=== PATIENT | female | born 1960 | race Caucasian/White ===

== ENCOUNTER 2016-12-27 20:36 | Emergency (ER) | payer OTHER ==
[2016-12-27 21:01] VITALS: BP 124/57
[2016-12-27] MEDS ORDERED: Lidocaine 1% MPF* 2 ML VIAL INJ ONE ×3 (21:06→21:07)
--- NOTE | 2016-12-27 21:26 | UC ---
Skin Complaint HPI - HPI Summary HPI Summary: Patient present with complaints of right middle toe, she think she has an ingrown toenail. She states the symptoms began quickly yesterday, she states at first she thought she got stung by a bee, and then later the end of her toe began to swell up and she developed a blood blister. She complains of pain at the end of toe and tried to relieve some of the pressure by popping it with a needle. She reports a maroonish blister on the medial edge, and white discoloration at the tip and lateral edge. - History of Current Complaint Chief Complaint: UCLowerExtremity Time Seen by Provider: 12/27/16 20:58 Stated Complaint: INGROWN TOENAIL Hx Obtained From: Patient ?: No Onset/Duration: Sudden Onset Skin Exposure Onset/Duration: Days Ago Timing: Constant Onset Severity: Moderate Current Severity: Severe Location: Discrete, Foot (Right) - middle toe Character: Swelling, Redness, Painful Aggravating: Touch Alleviating: Nothing Associated Signs & Symptoms: Positive: Negative Similar Episode/Dx as: ingrown toenail - Allergy/Home Medications Allergies/Adverse Reactions: Allergies Allergy/AdvReac Type Severity Reaction Status Date / Time No Known Allergies Allergy Verified 08/16/16 20:59 Home Medications: Home Medications Nutritional Supplements [Estroven Pm] 1 tab PO DAILY 12/27/16 [History Confirmed 12/27/16] Review of Systems Skin: Other - right middle toe swollen, red, painful All Other Systems Reviewed And Are Negative: Yes PMH/Surg Hx/FS Hx/Imm Hx Previously Healthy: Yes Other History Of: Anticoagulant Therapy - 81 mg a day. Negative For: HIV, Hepatitis B, Hepatitis C - Surgical History Surgical History: Yes Surgery Procedure, Year, and Place: HYSTERECTOMY;. C SECTIONS - 2;. LAPROSCOPY D& C; - Family History Known Family History: Positive: Cardiac Disease, Hypertension - Social History Occupation: Employed Part-time Lives: Alone Alcohol Use: Occasionally Substance Use Type: None Smoking Status (MU): Former Smoker Physical Exam Triage Information Reviewed: Yes Appearance: Pain Distress Vital Signs: Initial Vital Signs Temp 97.3 F 12/27/16 20:48 Pulse 81 12/27/16 20:48 Resp 18 12/27/16 20:48 BP 124/57 12/27/16 20:48 Pulse Ox 100 12/27/16 20:48 Vital Signs Reviewed: Yes Eye Exam: Normal ENT Exam: Normal Neck exam: Normal Respiratory Exam: Normal Cardiovascular Exam: Normal Abdominal Exam: Normal Psychological: Positive: Decreased Age Appropriate Behavior Skin Exam: Other - right middle toe, medial edge maroon and edematous, distal and medial edge white with flucuance. Course/Dx - Course Course Of Treatment: Patient presented with cellulitis surronding the right middle toe, with consent a digital block was performed, and the area was infiltrated with a 18 gauze needle with small amount of purelent drainage, and culture was obtained,and is pending.The patient was given keflex 500 mg in the department,and discharged home with a 10 day course. I also recommend that she soak her foot is epson salt water daily, keep the area clean and dry and follow up if she develops worse redness, swelling, and pain. - Differential Diagnoses - Skin Complaint Differential Diagnoses: Abscess, Cellulitis - Diagnoses Provider Diagnoses: abscess. cellulitis Discharge - Discharge Plan Condition: Stable Disposition: HOME Prescriptions: Cephalexin CAP* [Keflex CAP*] 500 mg PO QID #40 cap Patient Education Materials: Cellulitis (ED) Referrals: Cheryle Biswas MD [Primary Care Provider] -
[2016-12-27] MEDS ORDERED: Cephalexin CAP* 500 MG PO ONE (21:33)
== END 2016-12-27 21:57 | disposition home or self-care (01) ==
LOC: UCEAST 20:36
DX: L02.611 Cutaneous abscess of right foot (principal); L03.031 Cellulitis of right toe; Z79.82 Long term (current) use of aspirin; Z90.710 Acquired absence of both cervix and uterus; Z87.891 Personal history of nicotine dependence
CPT/HCPCS: 11730; 87070; 87205; 99202; A9270-GY; G0463